=== PATIENT | female | born 2000 | race Caucasian/White ===

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

== ENCOUNTER 2021-11-07 20:28 | Emergency (ER) | payer MEDICAID ==
[~2021-11-07] VITALS: Ht 167.6 cm; Wt 70.3 kg
[2021-11-07] MEDS ORDERED: PROPOFOL 10 MG/ML 20 ML IV ONE ×2 (20:45→21:00)
[2021-11-07] MEDS ORDERED: KETAMINE 50mg/ML 10ml Vial (500mg/10ml) IV ONE (20:45)
[2021-11-07] MEDS ORDERED: SODIUM CHLORIDE 0.9% 1,000 ML IV ONE (20:45)
[2021-11-07] MEDS ORDERED: PROPOFOL 100 ML IV ONE (20:58)
[2021-11-07] MEDS ORDERED: HYDROmorphone HCL 2 MG/ML VL IV ONE (21:15)
[2021-11-07] MEDS ORDERED: ONDANSETRON HCL 4 MG/2 ML VIAL IV ONE (21:15)
[2021-11-07 23:04] VITALS: BP 113/89
[2021-11-08] MEDS ORDERED: PROPOFOL 10 MG/ML 20 ML IV ONE
== END 2021-11-07 23:27 | disposition home or self-care (01) ==
LOC: EDUNIT# 20:28 → ER 20:28 → EDBD 20:28 → ER 23:27
DX: S83.004A Unspecified dislocation of right patella, initial encounter (principal); W18.40XA Slipping, tripping and stumbling without falling, unspecified, initial encounter; Y93.89 Activity, other specified; Y92.89 Other specified places as the place of occurrence of the external cause; Y99.8 Other external cause status
CPT/HCPCS: 27560; 73560; 96361; 96374; 96375; 99285; J1170; J2405; J2704; J7030

== ENCOUNTER 2025-02-11 16:23 | Emergency (ER) | payer MEDICAID ==
[~2025-02-11] VITALS: Ht 160 cm; Wt 68.0 kg
--- NOTE | 2025-02-11 16:43 | ED.PDOC ---
Musculoskeletal HPI Comments 24-year-old female brought in by EMS presents with a chief complaint of left knee pain. Patient has a history of dislocation of the right patella and now is presenting with the left patella dislocated laterally. The patella was reduced by applying medial pressure. Patient reports that the pain has minimize somewhat. Chief Complaint: Lower Extremity Time Seen by MD: 16:37 Primary Care Provider: none Reviewed Notes: Medications, Allergies Allergies: Coded Allergies: Penicillins (Verified Allergy, Unknown, 02/11/25) Information Source: Patient Mode of Arrival: Ambulatory Location: Left Extremity Location: Knee Timing: Minutes Prehospital treatment: None Severity: Moderate Able to Move Extremity: No Bear Weight: Limited Pain: Severe Hand Dominance: Right Mechanism: Spontaneous Circumstances: Spontaneous Onset of Symptoms: Spontaneous Symptoms: Pain DVT Risk Factors: NONE Associated signs and symptoms: Knee pain Past Medical History PAST MEDICAL HISTORY: Denies Surgical History: Denies all surgeries [employer] History: No Pertinent [employer] History Family History Family History: Reviewed,noncontributory to illness Social History Smoker: Non-Smoker Alcohol: Denies ETOH Use Drugs: Denies Drug Use Lives In: Home Constitutional: denies: chills, diaphoresis, fatigue, fever, malaise, sweats, weakness, others EENTM: denies: blurred vision, double vision, ear bleeding, ear discharge, ear drainage, ear pain, ear ringing, eye pain, eye redness, hearing loss, mouth pain, mouth swelling, nasal discharge, nose bleeding, nose congestion, nose pain, photophobia, tearing, throat pain, throat swelling, voice changes, others Respiratory: denies: cough, hemoptysis, orthopnea, SOB at rest, shortness of breath, SOB with excertion, stridor, wheezing, others Cardiovascular: denies: chest pain, dizzy spells, diaphoresis, Dyspnea on exertion, edema, irregular heart beat, left arm pain, lightheadedness, palpitations, PND, syncope, others Gastrointestinal: denies: abdomen distended, abdominal pain, blood streaked bowels, constipated, diarrhea, dysphagia, difficulty swallowing, hematemesis, melena, nausea, poor appetite, poor fluid intake, rectal bleeding, rectal pain, vomiting, others Genitourinary: denies: abnormal vagina bleeding, burning, dyspareunia, dysuria, flank pain, frequency, hematuria, incontinence, pain, , vagina discharge, urgency, others Neurological: denies: dizziness, fainting, headache, left sided numbness, left sided weakness, numbness, paresthesia, pre-existing deficit, right sided numbness, right sided weakness, seizure, speech problems, tingling, tremors, weakness, others Musculoskeletal: reports: joint pain; denies: back pain, gout, joint swelling, muscle pain, muscle stiffness, neck pain, others Integumetry: denies: bruises, change in color, change in hair/nails, dryness, laceration, lesions, lumps, rash, wounds, others Allergic/Immunocompromised: denies: Difficulty Healing, Frequent Infections, Hives, Itching, others Hematologic/Lymphatic: denies: anemia, blood clots, easy bleeding, easy bruising, swollen glands, others Endocrine: denies: excessive hunger, excessive sweating, excessive thirst, excessive urination, flushing, intolerance to cold, intolerance to heat, unexplained weight gain, unexplained weight loss, others Psychiatric: denies: anxiety, bipolar disorder, depression, hopeless, panic disorder, schizophrenia, sleepless, suicidal, others All Other Systems: Reviewed and Negative Physical Exam General Appearance: No Apparent Distress, Normal HEENT: Normal ENT Inspection, Pharynx Normal, TMs Normal Neck: Full Range of Motion, Non-Tender, Normal, Normal Inspection Respiratory: Chest Non-Tender, Lungs Clear, No Accessory Muscle Use, No Respiratory Distress, Normal Breath Sounds Cardiovascular: No Edema, No JVD, No Murmur, No Gallop, Normal Peripheral Pulses, Regular Rate/Rhythm Breast Exam: Deferred Gastrointestinal: No Organomegaly, Non Tender, No Pulsatile Mass, Normal Bowel Sounds, Soft Genitalia: Deferred Pelvic: Deferred Rectal: Deferred Extremities: No calf tenderness, Normal capillary refill, Normal inspection, Normal range of motion, Non-tender, No pedal edema Musculoskeletal : Location: Left Extremity Location: Knee Apperance: Deformity, Tenderness: Moderate Neurologic: Alert, director digital catalogue II-XII nml as Tested, No Motor Deficits, Normal Affect, Normal Mood, No Sensory Deficits Cerebellar Function: Normal Reflexes: Normal Skin: Dry, Normal Color, Warm Lymphatic: No Adenopathy Was a procedure done? Was a procedure done?: No Differential Diagnosis EXT Differential Diagnosis: Compartment Syndrome, Fracture, Sprain, Dislocation, DJD, Contusion, Neurovascular injury, Arthritis, Bursitis, Other (knee dislocation) X-Ray, Labs, Meds, VS Vital Signs Date Time Temp Pulse Resp B/P (MAP) Pulse Ox O2 Delivery O2 Flow Rate FiO2 02/11/25 16:36 98.5 80 25 123/80 (94) 96 98.5 Current Medications Medications (Trade) Dose Ordered Sig/Telma Route Start Time Stop Time Status Last Admin Acetaminophen/ Hydrocodone Bitart ([place] 5/325MG Tab) 1 tab ONCE ONCE PO 02/11/25 18:00 02/11/25 18:01 DC 02/11/25 18:07 Time of 1ST Reevaluation: 17:07 Reevaluation 1ST: Unchanged Time of 2ND Reevaluation: 18:11 Reevaluation 2ND: Resolved Patient Education/Counseling: Diagnosis, Treatment, Prognosis, Need For Follow Up Family Education/Counseling: No Family Present Comments pt had a dislocated patella, not knee joint. this was easily relocated without complications and pt tolerated procedure well. post reduction knee xray is unremarkable Departure 1 Departure Time of Disposition: 18:13 Impression: Primary Impression: Patellar dislocation Qualified Codes: S83.005A - Unspecified dislocation of left patella, initial encounter Disposition: HOME / SELF CARE / HOMELESS Condition: Good Discharged With: Self Critical Care Note Critical Care Time?: No Stability Stability form required: No Heart Score Heart Score: Heart Score Response (Comments) Value History N/A 0 EKG N/A 0 Age N/A 0 Risk Factors N/A 0 Troponin N/A 0 Total 0 I personally scribed for MARTHA BENITES MD ([email or web address]) on 02/11/25 at 16:43. Electronically submitted by Bruce Haque ([email or web address]). MARTHA BENITES MD Feb 11, 2025 16:43
[2025-02-11 16:45] VITALS: PULSE 93; RESP 18; TEMP 98.4; O2SAT 95
--- NOTE | 2025-02-11 17:31 | DVH ---
CLINICAL INDICATION: Lt KNEE PAIN TECHNIQUE: 2 radiographic views of the left knee were obtained. Comparison: L KNEE 2V XRAY on DOS: 11/07/21, R KNEE 2V XRAY on DOS: 11/07/21 FINDINGS/IMPRESSION: Small fracture off the inferior tip of the patella. The visualized joint space is well maintained. The alignment is anatomical. There is no radiopaque foreign body.
[2025-02-11] MEDS: HYDROcodone-ACET 5/325MG TAB PO ONE (18:07)
[2025-02-11 18:30] VITALS: BP 106/74; PULSE 81; RESP 13; O2SAT 96
== END 2025-02-11 19:01 | disposition home or self-care (01) ==
LOC: EDBD 16:23 → ER 16:23
DX: S83.005A Unspecified dislocation of left patella, initial encounter (principal); Z88.0 Allergy status to penicillin; X58.XXXA Exposure to other specified factors, initial encounter; Y93.89 Activity, other specified; Y92.89 Other specified places as the place of occurrence of the external cause; Y99.8 Other external cause status
CPT/HCPCS: 27560; 73560